=== PATIENT | female | born 2000 | race African-American/Black ===

== ENCOUNTER 2018-07-06 13:02 | Emergency (ER) | payer MEDICAID ==
[~2018-07-06] VITALS: Ht 165.1 cm; Wt 68.2 kg
[2018-07-06 13:35] VITALS: Ht 165.1 cm; Wt 68.2 kg
[2018-07-06] MEDS ORDERED: AUGMENTIN 875-11 TAB PO (16:01)
[2018-07-06 16:11] VITALS: BP 123/78
== END 2018-07-06 16:11 | disposition home or self-care (01) ==
LOC: D.ER 13:02
DX: O26.892 Other specified pregnancy related conditions, second trimester (principal); Z3A.00 Weeks of gestation of pregnancy not specified; H00.014 Hordeolum externum left upper eyelid

== ENCOUNTER → 2018-09-21 13:36 | Outpatient (CLI) | payer MEDICAID ==
[2018-07-06 13:35] VITALS: BMI 25.0
[~2018-09-21 13:36] MED LIST: AUGMENTIN 875-11 TAB PO
== END | disposition home or self-care (01) ==
LOC: D.LDO 13:36
DX: O26.893 Other specified pregnancy related conditions, third trimester (principal); Z3A.32 32 weeks gestation of pregnancy

== ENCOUNTER 2018-11-12 21:04 | Inpatient (IN) | payer MEDICAID ==
[~2018-11-12] VITALS: Ht 165.1 cm; Wt 93.4 kg
--- NOTE | ~2018-11-12 | OP ---
PATIENT NAME: STACIE REYES MEDICAL RECORD: [id number] :89 LOCATION:[id number] ADMISSION DATE:11/12/18 SURGEON: PEREZ MARTINES MD DATE OF OPERATION: 11/14/2018 PREDELIVERY DIAGNOSIS: at 39 weeks' gestation. POSTDELIVERY DIAGNOSES: 1. Nonreassuring monitoring. 2. Shoulder dystocia. 3. Mother delivered at 39 weeks' gestation. PROCEDURE: Induction of labor with vacuum-assisted vaginal delivery. ATTENDING: Perez Martines MD ANESTHETIC: Continuous lumbar epidural. FINDINGS: Viable female , AUDIE presentation, Apgars 9 and 9, weight 7 pounds 3 ounces. First-degree laceration superior to the urethral meatus and posterior vaginal wall. Both first-degree lacerations closed with Vicryl stitch. Placenta spontaneous and intact. ESTIMATED BLOOD LOSS: 350 cc. INDICATION FOR VACUUM ASSIST: Vacuum was applied over two expulsive efforts and two contractions with eventual delivery of the infant. The indication was bradycardia. At the time of delivery and shoulder dystocia, the shoulder dystocia was relieved for suprapubic pressure from the left and Isha position. The mother and are doing well and both recovered in the room. TRANSINT:[id number] Voice Confirmation ID: [id number] DOCUMENT ID: [id number] PEREZ MARTINES MD at 0911 CC: [id number] DICTATION DATE: 11/14/18 1234 DRAWING BOX TENDER: 11/14/18 1339 ADM IN [place] [id number] [place] [address]
--- NOTE | ~2018-11-12 | DS ---
PATIENT:STACIE REYES :89 MEDICAL RECORD: [id number] DISCHARGE SUMMARY ADMISSION DATE: 11/12/18 DISCHARGE DATE: 11/16/18 DATE OF ADMISSION: 11/12/2018 DATE OF DISCHARGE: 11/16/2018 ADMISSION DIAGNOSIS: at 39 weeks. DISCHARGE DIAGNOSIS: Mother delivered at 39 weeks. PROCEDURE: Vacuum-assisted vaginal delivery. ATTENDING: America Mcgee MD HISTORY OF PRESENT ILLNESS: See the H&P in the chart. SUMMARY OF HOSPITALIZATION: The patient was admitted to the hospital and underwent induction of labor. The patient underwent a cervical ripening and by hospital day 2 cervix was favorable enough for Pitocin induction. The patient went on to deliver vaginally with vacuum assist. At the time of discharge, she is doing as well as the . There is minimal lochia and the fundus is firm below the level of the umbilicus. The patient has been given standard precautions and will use some ibuprofen for discomfort. Followup has been arranged at [facility]. TRANSINT:[id number] Voice Confirmation ID: [id number] DOCUMENT ID: [id number] AMERICA MCGEE MD at 1321 CC: [id number] DICTATION DATE: 11/16/18 173 BEDSPREAD SEAMER: 11/17/18 1925 DIS IN 11/16/18 [facility] [address] [place] [address]
[2018-11-12 21:33] VITALS: BP 121/77; Ht 165.1 cm; Wt 93.4 kg
[2018-11-12 22:39] LABS: HEMATOCRIT 34.3 % (36.0-48.0); HEMOGLOBIN 11.5 g/dL (12-16); MCH 30.2 pg (26.0-34.0); MCHC 33.5 g/dL (31.0-37.0); MEAN PLATELET VOLUME 11.2 fL (7.4-10.4); RBC 3.81 10x6/uL (4.00-5.40); RDW 13.2 % (11.5-14.5); WBC 7.4 10x3/uL (4.8-10.8)
[2018-11-12 22:40] LABS: COLOR YELLOW (YELLOW)
[2018-11-12 22:41] LABS: APPEARANCE CLEAR (CLEAR); BILIRUBIN NEGATIVE (NEGATIVE); GLUCOSE NEGATIVE (NEGATIVE); KETONE NEGATIVE (NEGATIVE); NITRITE NEGATIVE (NEGATIVE); PROTEIN NEGATIVE (NEGATIVE); SPECIFIC GRAVITY 1.015 (1.005-1.020); UROBILINOGEN NORMAL (NORMAL)
[2018-11-12 22:42] LABS: BACTERIA MODERATE /hpf (NONE SEEN); CALCIUM OXALATE CRYSTALS 0-5 /hpf (NONE SEEN); RED CELLS - URINE 0-5 /hpf (0-5)
[2018-11-12 22:47] LABS: UDS - AMPHET NEGATIVE QUAL (NEGATIVE); UDS - BARB NEGATIVE QUAL (NEGATIVE); UDS - BENZO NEGATIVE QUAL (NEGATIVE); UDS - COCAINE NEGATIVE QUAL (NEGATIVE); UDS - OPIATE NEGATIVE QUAL (NEGATIVE); UDS - PCP NEGATIVE QUAL (NEGATIVE); UDS - THC NEGATIVE QUAL (NEGATIVE)
[2018-11-14 07:30] LABS: RAPID PLASMA REAGIN Non Reactive (Non Reactive)
[2018-11-14 19:45] VITALS: BP 112/70
[2018-11-15 06:49] LABS: HEMATOCRIT 30.4 % (36.0-48.0); HEMOGLOBIN 10.1 g/dL (12-16); MCHC 33.2 g/dL (31.0-37.0); MCV 90.2 fL (80.0-100.0); MEAN PLATELET VOLUME 9.9 fL (7.4-10.4); RBC 3.37 10x6/uL (4.00-5.40); RDW 13.4 % (11.5-14.5); WBC 8.1 10x3/uL (4.8-10.8)
[2018-11-15 08:00] VITALS: BP 117/75
[2018-11-15 12:00] VITALS: BP 98/57
[2018-11-15 20:31] VITALS: BP 111/57
[2018-11-16 00:31] VITALS: BP 122/60
[2018-11-16 03:54] VITALS: BP 117/54
[2018-11-16 07:30] VITALS: BP 105/63
[2018-11-16 16:31] VITALS: BP 101/63
[2018-11-16] MEDS ORDERED: IBUPROFEN800 MG PO (17:32)
== END 2018-11-16 18:08 | disposition home or self-care (01) | DRG 807 ==
LOC: D.LD 21:04 → D.WS 11-14 16:52
PROVIDERS: Obstetrics & Gynecology
PROC: 3E0P7VZ Introduction of Hormone into Female Reproductive, Via Natural or Artificial Opening (ICD-10-PCS; 2018-11-13)
PROC: 3E033VJ Introduction of Other Hormone into Peripheral Vein, Percutaneous Approach (ICD-10-PCS; 2018-11-13)
PROC: 10D07Z6 Extraction of Products of Conception, Vacuum, Via Natural or Artificial Opening (ICD-10-PCS; principal; 2018-11-14)
PROC: 0HQ9XZZ Repair Perineum Skin, External Approach (ICD-10-PCS; 2018-11-14)
DX: O99.824 Streptococcus B carrier state complicating childbirth (principal); Z37.0 Single live birth; Z3A.39 39 weeks gestation of pregnancy; O76 Abnormality in fetal heart rate and rhythm complicating labor and delivery; O70.0 First degree perineal laceration during delivery; O66.0 Obstructed labor due to shoulder dystocia

== ENCOUNTER 2020-06-17 12:25 | Emergency (ER) | payer SELFPAY ==
[~2020-06-17] VITALS: Ht 165.1 cm; Wt 93.2 kg
[~2020-06-17 12:25] MED LIST changes: +IBUPROFEN800 MG PO
[2020-06-17 12:47] VITALS: BP 113/62; Ht 165.1 cm; Wt 93.2 kg
[2020-06-17] MEDS ORDERED: BROMFED-DM COU473 ML PO (13:19)
[2020-06-17] MEDS ORDERED: TAMIFLU75 MG PO (14:17)
== END 2020-06-17 14:44 | disposition home or self-care (01) ==
LOC: D.ER 12:25
DX: J06.9 Acute upper respiratory infection, unspecified (principal); R05 Cough; Z20.828 Contact with and (suspected) exposure to other viral communicable diseases